=== PATIENT | female | born 1960 | race Caucasian/White ===

== ENCOUNTER 2017-02-09 12:58 | Emergency (ER) | payer OTHER ==
[~2017-02-09] VITALS: Ht 170.2 cm; Wt 87.2 kg
[2017-02-09 13:38] LABS: HEMATOCRIT 40.8 % (36.0-46.0); MCH 32.7 PG (29.0-34.0); MCHC 34.8 G/DL (30.0-36.0); MEAN PLAT.VOLUME 11.5 uM^3 (9.5-12.4); PLATELET COUNT 231 K/uL (156-360); RBC DIS.WIDTH-CV 12.6 % (11.8-14.6); RBC DIS.WIDTH-SD 43.8 % (39-53); RED BLOOD COUNT 4.34 M/uL (3.80-5.20); WHITE BLOOD COUNT 12.6 K/uL (4.1-10.2)
[2017-02-09 13:47] LABS: CHLORIDE 99 mEq/L (99-109); POTASSIUM 3.3 mEq/L (3.7-5.4); SODIUM 136 mEq/L (136-147)
[2017-02-09 13:49] LABS: GLUCOSE 131 mg/dL (70-99)
[2017-02-09 13:50] LABS: ANION GAP 10 MEQ/L (2-14)
[2017-02-09 13:51] LABS: TOTAL BILIRUBIN 1.3 mg/dL (0.0-1.0)
[2017-02-09 13:52] LABS: ALKALINE PHOSPHATASE 121 IU/L (3-129)
[2017-02-09 13:53] LABS: GFR ESTIMATE (CALCULATED) > 59 mL/min/
[2017-02-09 13:54] LABS: UREA NITROGEN (BUN) 7 mg/dL (9-23)
[2017-02-09 14:13] LABS: LIPASE 5 U/L (1.0-51.0)
[2017-02-09 14:13] LABS: ADD MIUA? YES; BILIRUBIN SMALL; BLOOD NEGATIVE; COLOR AMBER ((YELLOW)); GLUCOSE (STRIP) NEGATIVE; KETONES 5; LEUKOCYTES NEGATIVE; NITRITE NEGATIVE; PROTEIN (STRIP) 100; SPECIFIC GRAVITY 1.025 (1.000-1.030); UROBILINOGEN 0.2 MG/DL (0.2-1.0)
[2017-02-09] MEDS ORDERED: WELLBUTRIN XL300 MG PO (14:24)
[2017-02-09] MEDS ORDERED: NORVASC10 MG PO (14:24)
[2017-02-09 14:26] LABS: BACTERIA 1+ /HPF; EPITHELIAL CELLS 1+ /HPF; MUCUS 3+ /LPF; RED BLOOD CELLS NONE SEEN /HPF (0-5); UCUL ADDED? NO; WHITE BLOOD CELLS 0-5 /HPF (0-5)
[2017-02-09] MEDS ORDERED: ACCUPRIL10 MG PO (14:27)
[2017-02-09] MEDS ORDERED: HYDROCHLOROTH12.5 M3 PO (14:28)
[2017-02-09] MEDS ORDERED: FLAGYL500 MG PO (17:49)
[2017-02-09] MEDS ORDERED: CIPRO500 MG PO (17:49)
[2017-02-09] MEDS ORDERED: ULTRACET1 TABLET PO (17:49)
[2017-02-09 18:04] VITALS: BP 145/93
== END 2017-02-09 18:05 | disposition home or self-care (01) ==
LOC: EME 12:58
DX: K57.32 Diverticulitis of large intestine without perforation or abscess without bleeding (principal); Z88.0 Allergy status to penicillin; Z88.1 Allergy status to other antibiotic agents; F17.200 Nicotine dependence, unspecified, uncomplicated; Z90.710 Acquired absence of both cervix and uterus
CPT/HCPCS: 74176; 80053; 81003; 83690; 85027; 99281; 99284; J1885